=== PATIENT | female | born 1995 ===

== ENCOUNTER 2021-02-26 14:22 | Inpatient (IN) | payer MEDICAID, OTHER ==
--- NOTE | 2021-02-26 17:49 | Ultrasound Report ---
ULTRASOUND OBSTETRIC LIMITED ULTRASOUND BIOPHYSICAL PROFILE INDICATION / CLINICAL INFORMATION: well-being. Fluid check. Clinical Gestational Age (GA): 38.6 weeks.days COMPARISON: None available. FINDINGS: BREATHING MOVEMENT = 2 GROSS BODY MOVEMENT = 2 TONE = 2 QUALITATIVE AMNIOTIC FLUID VOLUME = 2 TOTAL BIOPHYSICAL SCORE = 8/8 HEART RATE (beats per minute): 133 AMNIOTIC FLUID INDEX (cm) = 15.7 (normal = 7-24 cm) PRESENTATION: Cephalic. ADDITIONAL FINDINGS: None. IMPRESSION: 1. Biophysical Score = 8/8 2. KVNG 15.7 cm Signer Name: Ryan Quach MD Signed: 02/26/2021 5:45 PM Workstation Name: [id number]
[2021-02-26] MEDS ORDERED: ePHEDrine SULFATE 50 MG/1 ML INJ IV PRN (18:05)
[2021-02-26] MEDS ORDERED: MINERAL OIL 30 ML ORAL LIQD PO PRN (18:05)
[2021-02-26] MEDS ORDERED: BUTORPHANOL 2 MG/1 ML INJ IV PRN ×2 (18:05)
[2021-02-26] MEDS ORDERED: fentaNYL 100 MCG/2 ML INJ IV PRN (18:05)
[2021-02-26] MEDS ORDERED: TERBUTALINE 1 MG/1 ML INJ SUB-Q PRN (18:05)
--- NOTE | 2021-02-26 18:32 | History and Physical Report ---
History of Present Illness Date of examination: 02/26/21 Date of admission: 02/26/21 Chief complaint: Pt with c/o uc and LOF times several hours History of present illness: 25 y/o presented to [facility] @ 38.6 wks with c/o leaking cl fluid and uc times several hours. Pt states she has been leaking fluid off and on since last wk. KVNG today is 15.7. She denied VB and admitted to active FM. Pt initiated her pnc at [facility] @ 5 6/7 wks. Pt stated her preg has been uneventful and w/o problems. She has a hx of ASCUS on her pap and a family hx of DM. Neg surgical or social hx. GBS is neg. Pt was found to have a pos ROM test and was admitted to L&D for delivery. Past History Past Medical History: no pertinent history Past Surgical History: no surgical history [employer] History: abnormal PAP smear Family/Genetic History: diabetes Social history: single - Obstetrical History Expected Date of Delivery: 03/06/21 Actual Gestation: 38 Week(s) 6 Day(s) : 3 Para: 2 Hx # Term Pregnancies: 2 Number of Living Children: 2 Medications and Allergies Allergies Allergy/AdvReac Type Severity Reaction Status Date / Time No Known Allergies Allergy Unverified 02/26/21 15:31 Active Meds: Active Medications Butorphanol Tartrate (Butorphanol 2 Mg/1 Ml Inj) 1 mg IV Q2H PRN PRN Reason: Pain, Moderate(4-6) LABOR PAIN Butorphanol Tartrate (Butorphanol 2 Mg/1 Ml Inj) 2 mg IV Q2H PRN PRN Reason: Pain , Severe (7-10) Ephedrine Sulfate (Ephedrine Sulfate 50 Mg/1 Ml Inj) 10 mg IV Q2M PRN PRN Reason: Hypotension Fentanyl (Fentanyl 100 Mcg/2 Ml Inj) 100 mcg IV Q2H PRN PRN Reason: Pain,Severe (7-10) LABOR PAIN Oxytocin/Sodium Chloride (Pitocin/Ns 30 Unit/500ml) 30 units in 500 mls @ 2 mls/hr IV TITR GRAYSON; Protocol Lactated Ringer's (Lactated Ringers) 1,000 mls @ 125 mls/hr IV DIRECT GRAYSON Oxytocin/Sodium Chloride (Pitocin/Ns 30 Unit/500ml) 30 units in 500 mls @ 40 mls/hr IV TITR GRAYSON; Protocol Lidocaine (Lidocaine (2%) 20 Mg/1 Ml Vial 20 Ml Mdv) 20 ml INFILTRATI ONCE ONE Stop: 02/26/21 18:06 Mineral Oil (Mineral Oil 30 Ml Oral Liqd) 30 ml PO QHS PRN PRN Reason: Constipation Terbutaline Sulfate (Terbutaline 1 Mg/1 Ml Inj) 0.25 mg SUB-Q ONCE PRN PRN Reason: Hyperstimulation/Hypertonicity Review of Systems All systems: negative Ears, nose, mouth and throat: deferred Breasts: normal Genitourinary: normal appearance Rectal Exam: deferred - Vital Signs Vital signs: Vital Signs Pulse BP 75 116/65 02/26/21 15:23 02/26/21 15:23 Temp Pulse Resp BP Pulse Ox 98.2 F 75 16 116/65 02/26/21 15:36 02/26/21 15:23 02/26/21 15:36 02/26/21 15:23 - Physical Exam Breasts: Positive: normal Abdomen: Positive: normal appearance, soft, normal bowel sounds, other (gravid) Genitourinary (Female): Positive: normal external genitalia, normal perenium Vulva: both: normal Vagina: Positive: normal moisture Uterus: Positive: enlarged, normal contour, other (gravid) Adnexa: both: normal Anus/Rectum: Positive: normal perianal skin Extremities: Positive: normal - Obstetrical FHR: auscultation normal, category 1 Uterine Contraction Monitor Mode: External Cervical Dilatation: 4 Cervical Effacement Percentage: 60 station: -2 Uterine Contraction Pattern: Regular Uterine Tone Measurement Phase: Resting Uterine Contraction Intensity: Mild Results Abnormal lab results 02/26/21 Range/Units 15:30 Membranes Rupture Positive A (Negative) All other labs normal. Assessment and Plan A: IUP@ 38.6 wks with SROM (cl fluid time unknown) Temp 98.1 P: Admit to L&D Continuos monitoring Start Ampi 2gm x1 then q4 Start Pitocin per protocal Pain med/Epidural prn Anticipate - Patient Problems (1) Supervision of normal IUP (intrauterine ) in multigravida Current Visit: Yes Status: Acute (2) SROM (spontaneous rupture of membranes) Current Visit: Yes Status: Acute (3) Abnormal Papanicolaou smear of cervix Current Visit: Yes Status: Acute
[2021-02-26] MEDS ORDERED: AMPICILLIN/NS 2 GM/100 ML 2 GM/100 ML BAG IV ONE (19:01)
[2021-02-26] MEDS ORDERED: LIDOCAINE (2%) 20 MG/1 ML VIAL 20 ML MDV INFILTRATI ONE (19:05)
[2021-02-26 19:39] LABS: Hematocrit 40.2 % (30.3-42.9); Hemoglobin 13.5 gm/dl (10.1-14.3); Mean Corpuscular HGB Conc 34 % (30-34); Mean Corpuscular Volume 95 fl (79-97); Platelet Count 245 K/mm3 (140-440); Red Blood Count 4.25 M/mm3 (3.65-5.03); Red Cell Distribution Width 14.3 % (13.2-15.2)
[2021-02-26] MEDS ORDERED: OXYTOCIN DRIP 30 UNITS/500 ML BAG IV SCH ×2 (20:00)
[2021-02-27] MEDS: LACTATED RINGERS 1,000 ML IV SCH ×2 (00:07→04:24)
[2021-02-27] MEDS ORDERED: AMPICILLIN/NS 2 GM/100 ML 2 GM/100 ML BAG IV ONE (00:15)
[2021-02-27] MEDS ORDERED: NALOXONE 2 MG/2 ML INJ IV PRN (01:55)
[2021-02-27] MEDS ORDERED: ePHEDrine SULFATE 50 MG/1 ML INJ IV PRN (01:55)
--- NOTE | 2021-02-27 01:55 | Anesthesia Consultation ---
Anesthesia Consult and Med Hx Date of service: 02/27/21 - Airway Anesthetic Teeth Evaluation: Good ROM Head & Neck: Adequate Mental/Hyoid Distance: Adequate Mallampati Class: Class II Intubation Access Assessment: Probably Good - Pulmonary Exam CTA: Yes - Cardiac Exam Cardiac Exam: RRR - Pre-Operative Health Status ASA Pre-Surgery Classification: ASA2 Proposed Anesthetic Plan: Epidural - Pulmonary Hx Asthma: No COPD: No - Cardiovascular System Hx Hypertension: No - Central Nervous System Hx Seizures: No Hx Psychiatric Problems: No - Endocrine Hx Renal Disease: No Hx End Stage Renal Disease: No Hx Hypothyroidism: No Hx Hyperthyroidism: No - Hematic Hx Anemia: No Hx Sickle Cell Disease: No - Other Systems Hx Alcohol Use: No
[2021-02-27] MEDS ORDERED: fentaNYL-BUPIV 2 MCG/ML-0.125% 200 MCG/100 ML BAG EPIDURAL SCH (02:00)
--- NOTE | 2021-02-27 02:41 | Progress Note ---
Labor Epidural - Labor Epidural Start Time: 02:04 Stop Time: 02:19 Performed by:: LEON WHITTAKER Procedure: Patient is requesting epidural for labor pain. H&P, and labs reviewed. Procedure explained, questions answered, consent obtained. Patient in sitting position with blood pressure cuff and pulse ox on and working. Timeout performed immediately before start of procedure. Sterile chlorahexadine 0.5% prep/drape. 3 mL 1% lidocaine skin wheal at L[3]-L[4]. 18-gauge GameDuelltead epidural needle advanced to [id number] with saline at [7] cm. 27-gauge spinal needle advanced until clear, free-flowing CSF. Intrathecal dexmedetomidine [5] mcg administered and needle removed. Epidural catheter advanced to [12] cm, unable to inject through catheter, removed x2, third time negative aspiration for blood and csf, negative test dose 3 ml 1.5% lidocaine with epinephrine. Sterile steri-strips and tegaderm applied, followed by tape reinforcement. Patient tolerated procedure well.
[2021-02-27] MEDS: AMPICILLIN/NS 1 GM/50 ML 1 GM/50 ML BAG IV SCH ×2 (04:31→08:31)
[2021-02-27] MEDS ORDERED: METHYLERGONOVINE MALEATE 0.2 MG/ML VIAL IM ONE (08:58)
--- NOTE | 2021-02-27 09:17 | Procedure Note ---
Date of procedure: 02/27/21 Pre-op diagnosis: TERM IUP, LABOR, SROM Post-op diagnosis: same Procedure: .NO TERRARS. RECTAL MUCOSA INTACT. LIVE BORN MALE 6'15", 9,9. SOME PPH, PT WAS GIVEN METHERGINE. Anesthesia: epidural Surgeon: CARMELO GIRON Estimated blood loss: other (300 CCS) Pathology: none Specimen disposition: discarded Condition: stable Disposition: floor
[2021-02-27] MEDS ORDERED: HYDROcodone/ACETAMINOPHEN 5-325 MG TAB PO PRN (09:30)
[2021-02-27] MEDS ORDERED: diphenhydrAMINE 25 MG CAP PO PRN (09:30)
[2021-02-27] MEDS ORDERED: ACETAMINOPHEN 325 MG TAB PO PRN (09:30)
[2021-02-27] MEDS ORDERED: ONDANSETRON 4 MG/2 ML INJ IV PRN (10:00)
[2021-02-27] MEDS ORDERED: WITCH HAZEL/ GLYCERIN PAD TP PRN (10:00)
[2021-02-27] MEDS ORDERED: PROMETHAZINE 25 MG TAB PO PRN (10:00)
[2021-02-27] MEDS ORDERED: PROMETHAZINE 25 MG RECT SUPP PR PRN (10:00)
[2021-02-27] MEDS ORDERED: LANOLIN/ZINC/DIMETHICONE (LANSINOH) 7 GM TP PRN (10:00)
[2021-02-27] MEDS ORDERED: PRENATAL VIT27-FE FUMARATE-FOLIC ACID VIT TAB PO SCH (10:00)
[2021-02-27] MEDS: IBUPROFEN 600 MG TAB PO SCH ×3 (14:28→23:10)
[2021-02-27] MEDS: DOCUSATE SODIUM 100 MG CAP PO SCH ×2 (14:28→23:10)
[2021-02-27 21:19] LABS: Hematocrit 33.6 % (30.3-42.9); Hemoglobin 11.6 gm/dl (10.1-14.3)
[2021-02-27] MEDS ORDERED: MAGNESIUM HYDROXIDE (MOM) ORAL LIQD UDC PO PRN (22:00)
[2021-02-28] MEDS: IBUPROFEN 600 MG TAB PO SCH (05:55)
--- NOTE | 2021-02-28 11:57 | Progress Note ---
Assessment and Plan - Patient Problems (1) Vaginal delivery Current Visit: Yes Status: Acute Plan to address problem: --Multiparous patient with uncomplicated , meeting goals. --Anticipate discharge home Subjective - Subjective Date of service: 02/28/21 Principal diagnosis: PPD1, multiparous, hx ASCUS Interval history: Patient doing well. Meeting goals. Reports that she would like to go home if able. Breast/bottle feeding. Patient reports: appetite normal, voiding normally, pain well controlled, flatus : doing well Objective - Vital Signs Latest vital signs: Vital Signs Temp Pulse Resp BP Pulse Ox 02/28/21 07:47 98.0 F 67 18 86/49 96 02/28/21 00:54 98.0 F 78 20 91/53 98 02/27/21 21:43 98.5 F 76 20 98/59 97 02/27/21 16:17 98.4 F 86 20 98/49 97 Intake and Output 02/27/21 02/28/21 02/28/21 23:59 07:59 15:59 Intake Total 240 240 240 Balance 240 240 240 Intake: Oral 240 240 Intake, Free Water 240 Other: Total, Intake Amount 240 240 Voiding Method Toilet # Voids Void 1 1 1 - Exam Abdomen: Present: normal appearance Uterus: Present: fundal height below umbilicus
--- NOTE | 2021-02-28 12:00 | Discharge Summary ---
Providers - Providers Date of Admission: 02/26/21 18:05 Date of discharge: 02/28/21 Attending physician: CARMELO GIRON MD Primary care physician: JULIA NAJERA Hospitalization Reason for admission: rupture of membranes Delivery: Procedure details: c/b PPH s/p Methergine, EBL 300cc. Intact. Laceration: none complications: none Discharge diagnosis: IUP at term delivered [place] baby: male Hospital course: Admitted with PROM. S/p uncomplicated on 02/27/21. Discharge in good condition on PPD s/p 24H in good condition per patient request. Condition at discharge: Good Disposition: DC-01 TO HOME OR SELFCARE - Discharge Diagnoses (1) Vaginal delivery Status: Acute Plan - Provider Discharge Summary Activity: routine, no strenuous exercise Diet: routine Instructions: routine Additional instructions: [] Smoking cessation referral if applicable(refer to patient education folder for contact #) [] Refer to [facility] Booklet Call your doctor immediately for: * Fever > 100.5 * Heavy vaginal bleeding ( >1 pad per hour) * Severe persistent headache * Shortness of breath * Reddened, hot, painful area to leg or breast * Drainage or odor from incision. * Keep incision clean and dry at all times and follow doctor's instructions regarding bathing/showering - Follow up plan Follow up: JULIA NAJERA MD [Primary Care Provider] - 6 Weeks
[2021-02-28 17:29] VITALS: BP 92/52
--- NOTE | 2021-02-28 18:52 | Post Anesthesia Evaluation ---
- Post Anesthesia Evaluation Patient Participated: Yes Airway Patent: Yes Stable Respiratory Function: Yes Nausea/Vomiting: No Temp > 96.8F: Yes Pain Manageable: Yes Adequeate Hydration: Yes Anesthesia Complications: No Block Receding Appropriately: Yes
[2021-02-28] MEDS: DOCUSATE SODIUM 100 MG CAP PO SCH (19:44)
== END 2021-02-28 17:45 | disposition home or self-care (01) | DRG 807 ==
LOC: TRG 14:22 → APU 14:23 → TRG 18:05 → LD 18:05 → OB 02-27 10:47
PROC: 10E0XZZ Delivery of Products of Conception, External Approach (ICD-10-PCS; principal; 2021-02-27)
PROC: 3E0R3BZ Introduction of Anesthetic Agent into Spinal Canal, Percutaneous Approach (ICD-10-PCS; 2021-02-27)
PROC: 00HU33Z Insertion of Infusion Device into Spinal Canal, Percutaneous Approach (ICD-10-PCS; 2021-02-27)
DX: O42.92 Full-term premature rupture of membranes, unspecified as to length of time between rupture and onset of labor (principal); Z37.0 Single live birth; Z3A.38 38 weeks gestation of pregnancy; O09.43 Supervision of pregnancy with grand multiparity, third trimester; Z20.822 Contact with and (suspected) exposure to COVID-19
CPT/HCPCS: 36415; 59025; 76815; 76819; 84112; 85014; 85018; 85027; 86850; 86900; 86901; 96360; 99211; G0378; G0463; J0290; J2210; J2590; J7120; U0003